=== PATIENT | female | born 1995 | race Caucasian/White ===

== ENCOUNTER 2016-08-26 14:36 | Emergency (ER) | payer OTHER ==
[2016-08-26 15:29] VITALS: BP 110/65
[2016-08-26] MEDS ORDERED: cefTRIAXone VIAL(*) 250 MG VIAL IM ONE (16:18)
[2016-08-26] MEDS ORDERED: Lidocaine 1% MPF* 2 ML VIAL ONE (16:23)
[2016-08-26] MEDS ORDERED: Azithromycin TAB* 250 MG PO ONE (16:52)
[2016-08-26] MEDS ORDERED: Ondansetron ODT TAB* 4 MG ONE (17:03)
[2016-08-26] MEDS ORDERED: Ondansetron ODT TAB* 4 MG PO ONE (18:00)
--- NOTE | 2016-08-26 18:02 | UC ---
Tito Clay Michael, scribed for Heather Matute MD on 08/26/16 at 1556 . Complaint Female HPI - HPI Summary HPI Summary: 21 y/o female comes to [facility] requesting an STD/HIV testing. The pt reports having unprotected sex 2 weeks ago and had STD/HIV testing which came back negative. Recently, she had unprotected sex with a different partner 2 days ago, and she now c/o yellow vaginal discharge, dysuria, and vaginal itching. The pt denies vaginal blisters and a hx of yeast infection. The PMHx is significant for Gonorrhea in 2014, and she is . Currently, the pt is breast feeding her 16 month old. The FHx is significant for DM, sz, and osteopenia. Her LNMP was 08/14/16. The pt will be starting control soon with a Nuvaring. - History Of Current Complaint Chief Complaint: UCSTDScreening Stated Complaint: ITCHY/BURNING VAGINAL COMPLAINT Hx Obtained From: Patient, Medical Records Hx Last Menstrual Period: 08/14/16 ?: No Onset/Duration: Sudden Onset, Lasting Days, Still Present Timing: Constant Severity Initially: Moderate Severity Currently: Moderate Pain Intensity: 0 Pain Scale Used: 0-10 Numeric Character: Not Applicable Aggravating Factor(s): Nothing Alleviating Factor(s): Nothing Associated Signs And Symptoms: Positive: Vaginal Discharge. Negative: Negative - Positive. dysuria. vaginal itching., Vaginal Bleeding/Discharge, Genital Swelling, Genital Blisters Related Hx: Prior STD Hx - gonorrhea - Allergies/Home Medications Allergies/Adverse Reactions: Allergies Allergy/AdvReac Type Severity Reaction Status Date / Time oral control Allergy See Comment Uncoded 08/26/16 15:23 Home Medications: Home Medications Vitamin [Calna] 1 tab PO DAILY 08/26/16 [History Confirmed 08/26/16] PMH/Surg Hx/FS Hx/Imm Hx - Additional Past Medical History Additional PMH: Gonorrhea Psychological History Of: Reports: Anxiety, Depression - Surgical History Surgical History: None - Family History Known Family History: Positive: Hypertension, Diabetes, Other - osteopenia - Social History Occupation: Unemployed Lives: With Family Alcohol Use: None Substance Use Type: None Smoking Status (MU): Former Smoker - Immunization History Most Recent Influenza Vaccination: none Most Recent Tetanus Shot: declined Most Recent Pneumonia Vaccination: never Review of Systems Constitutional: Negative Respiratory: Negative Gastrointestinal: Negative Genitourinary: Dysuria, Other - vaginal discharge. vaginal itching. negative vaginal blisters. Musculoskeletal: Negative Neurological: Negative Psychological: Negative All Other Systems Reviewed And Are Negative: Yes Physical Exam Triage Information Reviewed: Yes Appearance: Well-Appearing, No Pain Distress, Well-Nourished Vital Signs: Initial Vital Signs Temp 98.8 F 08/26/16 15:24 Pulse 76 08/26/16 15:24 Resp 16 08/26/16 15:24 BP 110/65 08/26/16 15:24 Pulse Ox 100 08/26/16 15:24 Vital Signs Reviewed: Yes ENT: Positive: Normal ENT inspection, Hearing grossly normal. Negative: Muffled /hoarse voice Neck: Positive: Supple Respiratory: Positive: Lungs clear, Normal breath sounds, No respiratory distress Cardiovascular: Positive: RRR, No Murmur, Pulses Normal, Brisk Capillary Refill Abdomen Description: Positive: Nontender, No Organomegaly, Soft. Negative: CVA Tenderness (R), CVA Tenderness (L), Distended, Guarding, McBurney's Point Tenderness, Peritoneal Signs Musculoskeletal: Positive: Strength Intact, ROM Intact Neurological Exam: Normal Psychological Exam: Normal Skin Exam: Normal Complaint Female Dx - Course Course Of Treatment: have treated pt empirically at her request. Pt is nursing so did not give doxycycline. discussed possible zofran if meds make her nauseous. Caution is advised with zofran. Will dispense one zofran and pt may decide risks vs benefits. - Differential Dx/Diagnosis Differential Diagnosis/HQI/PQRI: Cervicitis, Sexually Transmitted Disease, Tubo- ovarian Abscess, Urinary Tract Infection Provider Diagnoses: STD evaluation and treatment Discharge - Discharge Plan Condition: Stable Disposition: HOME Patient Education Materials: Sexually Transmitted Diseases (ED) Referrals: Asif Ayers MD [Primary Care Provider] - Additional Instructions: We gave you a shot of ceftriaxone 250mg as empiric treatment for STD's. We also gave azithromycin 1000mg orally. You need both of these treatments for STD 's. We will notify you if you need further treatment based on the tests sent today. We dispensed one pill of zofran that you may take if the meds make you nauseous. Return to urgent care if any new or worsening symptoms. The documentation as recorded by the Tito gibson Michael accurately reflects the service I personally performed and the decisions made by , Heather Matute MD.
[2016-08-27 12:44] LABS: Syphilis Index < 0.1 Index
== END 2016-08-26 17:07 | disposition home or self-care (01) ==
LOC: UCEAST 14:36
DX: N89.8 Other specified noninflammatory disorders of vagina (principal); Z11.3 Encounter for screening for infections with a predominantly sexual mode of transmission
CPT/HCPCS: 36415; 81003; 84702; 86592; 86703; 87480; 87491; 87510; 87591; 87661; 99211; A9270-GY; G0463; J0696

== ENCOUNTER 2016-09-16 23:37 | Inpatient (IN) | payer MEDICAID, OTHER ==
[2016-09-17 00:34] LABS: Hematocrit 39 % (35-47); Hemoglobin 12.7 g/dl (12.0-16.0); Mean Corpuscular HGB Conc 32 g/dl (31-36); Mean Corpuscular Hemoglobin 28 pg (27-31); Mean Corpuscular Volume 87 fL (80-97); Mean Platelet Volume 9 um3 (7.4-10.4); Red Cell Distribution Width 14 % (10.5-15); White Blood Count 8.8 10^3/ul (3.5-10.8)
[2016-09-17 01:05] LABS: Acetaminophen < 15 mcg/mL; Alcohol < 10 mg/dL (<10); Salicylate < 2.50 mg/dL (<30)
[2016-09-17 01:06] LABS: ALT 13 U/L (7-52); AST 13 U/L (13-39); Albumin 4.2 g/dL (3.2-5.2); Alkaline Phosphatase 109 U/L (34-104); Anion Gap 7 mmol/L (2-11); BUN/Creatinine Ratio 15.6 (8-20); Blood Urea Nitrogen 14 mg/dL (6-24); CO2 Carbon Dioxide 24 mmol/L (22-32); Calcium 9.2 mg/dL (8.6-10.3); Chloride 107 mmol/L (101-111); EGFR African American 102.7 (>60); EGFR Non-African American 79.8 (>60); Globulin 2.8 g/dL (2-4); Glucose 77 mg/dL (70-100); Potassium 4.2 mmol/L (3.5-5.0); Sodium 138 mmol/L (133-145)
[2016-09-17] MEDS ORDERED: Fluconazole 100 MG TAB* TAB PO ONE (01:16)
--- NOTE | 2016-09-17 01:39 | ED ---
Psychiatric Complaint - HPI Summary HPI Summary: Patient presents with her mother for SI. She has had thoughts in the past with attempts. Today she had a plan "but was just too lazy to go through with it". She does not elaborate on her plan. She sees a counselor and has been prescribed medications for anxiety and sleep but she does not take them. She denies physical complaints. - History Of Current Complaint Chief Complaint: EDMentalHealth Time Seen by Provider: 09/17/16 00:01 Hx Obtained From: Patient, Family/Log Driver Hx Last Menstrual Period: 08/14/16 ?: No Onset/Duration: Gradual Onset Timing: Constant Severity Initially: Severe Severity Currently: Severe Character: Depressed Aggravating Factor(s): Recent Stress Alleviating Factor(s): Nothing Associated Signs And Symptoms: Positive: Sleep Disturbance Related History: Positive For: Prior Psychiatric Issues Has Suicidal: Reports: Thoughts, With A Plan, Has Prior Attempt(s) - Allergies/Home Medications Allergies/Adverse Reactions: Allergies Allergy/AdvReac Type Severity Reaction Status Date / Time oral control Allergy See Comment Uncoded 08/26/16 15:23 Home Medications: Home Medications Cholecalciferol [Vitamin D] 1,000 unit PO DAILY 09/17/16 [History Confirmed 06/05] Nuvaring 1 each VAGINAL ONCE 09/17/16 [History Confirmed 09/17/16] Sertraline* [Zoloft*] 25 mg PO DAILY 09/17/16 [History Confirmed 09/17/16] PMH/Surg Hx/FS Hx/Imm Hx Psychiatric History: Reports: Hx Anxiety, Hx Eating Disorder - ANOREXIA NERVOSA , [place], Hx Depression, Hx Post Traumatic Stress Disorder, Hx Inpatient Treatment - [facility] and [facility], Hx [facility], Hx of Violent Episodes Against Others Infectious Disease History: No Infectious Disease History: Denies: History Other Infectious Disease, Traveled Outside the [place] in Last 30 Days - Family History Known Family History: Positive: Hypertension, Diabetes, Other - osteopenia Negative: Blood Disorder - Social History Occupation: Employed Part-time Lives: With Family Alcohol Use: None Substance Use Type: Reports: Marijuana, Other Substance Use Comment - Amount & Last Used: spice, yesterday Smoking Status (MU): Former Smoker Review of Systems Negative: Chest Pain Negative: Shortness Of Breath Negative: Abdominal Pain Negative: Myalgia Negative: Headache Positive: Depressed All Other Systems Reviewed And Are Negative: Yes Physical Exam Triage Information Reviewed: Yes Vital Signs On Initial Exam: Initial Vitals Temp Pulse Resp BP Pulse Ox 98.5 F 55 16 106/58 99 09/16/16 23:40 09/16/16 23:40 09/16/16 23:40 09/16/16 23:40 09/16/16 23:40 Vital Signs Reviewed: Yes Appearance: Positive: Well-Appearing, No Pain Distress, Thin Skin: Positive: Warm, Skin Color Reflects Adequate Perfusion, Dry, Soft Head/Face: Positive: Normal Head/Face Inspection Eyes: Positive: EOMI, JESSE, Conjunctiva Clear ENT: Positive: Hearing grossly normal, Pharynx normal Neck: Positive: Supple, Nontender, No Lymphadenopathy Respiratory/Lung Sounds: Positive: Clear to Auscultation, Breath Sounds Present Cardiovascular: Positive: RRR Abdomen Description: Positive: Nontender, Soft Bowel Sounds: Positive: Present Musculoskeletal: Negative: Edema Left, Edema Right Neurological: Positive: Sensory/Motor Intact, Alert, Oriented to Person Place, Time, NV Bundle Intact Distally, Normal Gait Psychiatric: Positive: Depressed AVPU Assessment: Alert - [place] Coma Scale Coma Scale Total: 15 Diagnostics - Vital Signs Vital Signs Temp Pulse Resp BP Pulse Ox 09/16/16 23:59 98.5 F 55 16 106/58 99 09/16/16 23:40 98.5 F 55 16 106/58 99 - Laboratory Lab Results: Lab Results 09/17/16 09/17/16 Range/Units 00:00 00:00 WBC 8.8 (3.5-10.8) 10^3/ul RBC 4.50 (4.0-5.4) 10^6/ul Hgb 12.7 (12.0-16.0) g/dl Hct 39 (35-47) % MCV 87 (80-97) fL MCH 28 (27-31) pg MCHC 32 (31-36) g/dl RDW 14 (10.5-15) % Plt Count 297 (150-450) 10^3/ul MPV 9 (7.4-10.4) um3 Neut % (Auto) 45.4 (38-83) % Lymph % (Auto) 42.2 (25-47) % [place] % (Auto) 8.3 (1-9) % Eos % (Auto) 3.4 (0-6) % Baso % (Auto) 0.7 (0-2) % Absolute Neuts (auto) 4.0 (1.5-7.7) 10^3/ul Absolute Lymphs (auto) 3.7 (1.0-4.8) 10^3/ul Absolute Monos (auto) 0.7 (0-0.8) 10^3/ul Absolute Eos (auto) 0.3 (0-0.6) 10^3/ul Absolute Basos (auto) 0.1 (0-0.2) 10^3/ul Absolute Nucleated RBC 0.01 10^3/ul Nucleated RBC % 0.1 Sodium 138 (133-145) mmol/L Potassium 4.2 (3.5-5.0) mmol/L Chloride 107 (101-111) mmol/L Carbon Dioxide 24 (22-32) mmol/L Anion Gap 7 (2-11) mmol/L BUN 14 (6-24) mg/dL Creatinine 0.90 (0.51-0.95) mg/dL Est GFR ( Amer) 102.7 (>60) Est GFR (Non-Af Amer) 79.8 (>60) BUN/Creatinine Ratio 15.6 (8-20) Glucose 77 (70-100) mg/dL Calcium 9.2 (8.6-10.3) mg/dL Total Bilirubin 0.40 (0.2-1.0) mg/dL AST 13 (13-39) U/L ALT 13 (7-52) U/L Alkaline Phosphatase 109 H (34-104) U/L Total Protein 7.0 (6.4-8.9) g/dL Albumin 4.2 (3.2-5.2) g/dL Globulin 2.8 (2-4) g/dL Albumin/Globulin Ratio 1.5 (1-3) TSH 3.90 (0.34-5.60) mcIU/mL Salicylates < 2.50 (<30) mg/dL Acetaminophen < 15 mcg/mL Serum Alcohol < 10 (<10) mg/dL Result Diagrams: 09/17/16 00:00 09/17/16 00:00 Lab Statement: Any lab studies that have been ordered have been reviewed, and results considered in the medical decision making process. Course/Dx - Differential Dx/Clinical Impression Differential Diagnosis/HQI/PQRI: Positive: Acute Psychosis, Alcohol Intoxication , Anxiety, Bipolar Disorder, Depression, Homicidal Ideation, Schizophrenia, Suicidal Ideation Provider Diagnosis: Persistent mood [affective] disorder, unspecified - Physician Notifications Patient Is Medically Stable For: Psych Evaluation Discharge - Discharge Plan Condition: Stable Disposition: ADMITT[facility] TO [facility]
[2016-09-17 15:00] LABS: Urine Bacteria 1+ (Absent); Urine Bilirubin Negative (Negative); Urine Glucose Negative (Negative); Urine Nitrite Negative (Negative)
[2016-09-17 16:00] LABS: Benzodiazepine Urine Screen None Detected (None Detect)
[2016-09-17 16:30] LABS: UR Preg Internal Control QC Line Present
[2016-09-17] MEDS ORDERED: Nicotine Inhaler* 10 MG AMP INH PRN (16:58)
[2016-09-17] MEDS ORDERED: Al Hydrox/Mg Hydrox/Simet LIQ* 30 ML UDC PO PRN (16:58)
[2016-09-17] MEDS ORDERED: OLANzapine TAB*ODT* 5 MG PO PRN (17:02)
--- NOTE | 2016-09-17 17:59 | PN ---
Rayray Clay Auryana, scribed for Axel Pablo MD on 09/17/16 at 1758 . Progress Note - Progress Note Note: Signed voluntary admission - 16:45 to [facility]. condition is stable. Diagnosis: PTSD. The documentation as recorded by the Rayray gibson Auryana accurately reflects the service I personally performed and the decisions made by , Axel Pablo MD.
[2016-09-17] MEDS ORDERED: Mouth Piece, Nicotine* 1 EACH CARTRIDGE INH ONE (18:00)
[2016-09-17] MEDS: Acetaminophen TAB* 325 MG PO PRN (18:40)
[2016-09-18] MEDS: Vitamin THERAPEUTIC TAB PO SCH (10:51)
--- NOTE | 2016-09-18 11:23 | PN ---
[facility]: Group Therapy Note - Service Type Service Type: [id number] Group Psychotherapy - Cognitive Behavioral Group Therapy ( CBT):Patient was attentive and participatory in CBT programming this morning, and remained in good behavioral control. Patient expressed positive insights regarding relevant treatment interventions and goals.
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
[2016-09-18] MEDS ORDERED: hydrOXYzine HCL TAB* 25 MG PO PRN (17:13)
--- NOTE | 2016-09-18 22:01 | PN ---
Progress Note - Progress Note Note: Patient apparently with hip pain as per Psychiatrist. Before doing an extensive workup, make sure patient is getting her ibuprofen when needed and try tylenol as well. If unsuccessful then advice and can consider pursuing workup.
[2016-09-19] MEDS: Ibuprofen TAB* 400 MG PO PRN ×2 (00:30→22:50)
[2016-09-19] MEDS: Acetaminophen TAB* 325 MG PO PRN (00:30)
[2016-09-19] MEDS: traZODone TAB* 50 MG TAB PO PRN ×2 (00:35→22:51)
[2016-09-19] MEDS: Prenatal Vitamin TAB PO SCH (09:20)
[2016-09-19] MEDS: Sertraline* 25 MG TAB PO SCH (09:20)
[2016-09-19] MEDS: Cholecalciferol TAB* 1000 UNITS PO SCH (09:21)
[2016-09-19] MEDS: Vitamin THERAPEUTIC TAB PO SCH (09:22)
--- NOTE | 2016-09-19 11:41 | PN ---
[facility]: Group Therapy Note - Service Type Service Type: 72798 Group Psychotherapy - Cognitive Behavioral Group Therapy ( CBT):Patient was attentive and participatory in CBT programming this morning, and remained in good behavioral control. Patient expressed positive insights regarding relevant treatment interventions and goals.
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
[2016-09-20 08:25] VITALS: BP 97/46
[2016-09-20] MEDS: Prenatal Vitamin TAB PO SCH (09:27)
[2016-09-20] MEDS: Sertraline* 25 MG TAB PO SCH (09:27)
[2016-09-20] MEDS: Cholecalciferol TAB* 1000 UNITS PO SCH (09:27)
[2016-09-20] MEDS: Vitamin THERAPEUTIC TAB PO SCH (09:27)
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
--- NOTE | 2016-09-20 13:28 | PN ---
[facility]: Group Therapy Note - Service Type Service Type: 92120 Group Psychotherapy - Cognitive Behavioral Group Therapy ( CBT):Patient was attentive and participatory in CBT programming this morning, and remained in good behavioral control. Patient expressed positive insights regarding relevant treatment interventions and goals.
== END 2016-09-20 14:45 | disposition home or self-care (01) | DRG 754 ==
LOC: ED 23:37 → BSU 09-17 16:58
PROVIDERS: ADMIT Psychiatry & Neurology Psychiatry; ATTEND Psychiatry & Neurology Psychiatry
PROC: GZHZZZZ Group Psychotherapy (ICD-10-PCS; principal; 2016-09-17)
DX: F32.9 Major depressive disorder, single episode, unspecified (principal); F50.00 Anorexia nervosa, unspecified; F50.2 Bulimia nervosa; F43.10 Post-traumatic stress disorder, unspecified; F41.0 Panic disorder [episodic paroxysmal anxiety]; F12.90 Cannabis use, unspecified, uncomplicated; Z62.812 Personal history of neglect in childhood; F91.3 Oppositional defiant disorder; F60.3 Borderline personality disorder; M25.552 Pain in left hip; M79.652 Pain in left thigh; M25.562 Pain in left knee; R40.2412 Glasgow coma scale score 13-15, at arrival to emergency department; Z62.810 Personal history of physical and sexual abuse in childhood; Z82.49 Family history of ischemic heart disease and other diseases of the circulatory system; Z84.89 Family history of other specified conditions; Z86.19 Personal history of other infectious and parasitic diseases; Z83.3 Family history of diabetes mellitus; Z87.891 Personal history of nicotine dependence; Z91.5 Personal history of self-harm; Z81.8 Family history of other mental and behavioral disorders; Z81.3 Family history of other psychoactive substance abuse and dependence; Z91.410 Personal history of adult physical and sexual abuse; Z68.20 Body mass index [BMI] 20.0-20.9, adult; Z91.040 Latex allergy status
CPT/HCPCS: 36415; 80053; 80307; 80320; 80329; 81003; 81015; 81025; 84443; 85025; 87086; 90853; 99222; 99231; 99238; 99282; A9270-GY; G0480

== ENCOUNTER 2016-11-23 12:34 | Emergency (ER) | payer OTHER ==
[2016-11-23 12:40] VITALS: BP 107/70
[2016-11-23] MEDS ORDERED: diPHENhydraMINE PO* 25 MG PO ONE (15:48)
[2016-11-23] MEDS ORDERED: predniSONE TAB* 20 MG PO ONE (15:49)
--- NOTE | 2016-11-23 15:52 | ED ---
Allergic Reaction/Systemic - History of Current Complaint Chief Complaint: EDAllergicReaction Time Seen by Provider: 11/23/16 14:54 Hx Last Menstrual Period: 08/14/16 Pain Intensity: 0 - Allergies/Home Medications Allergies/Adverse Reactions: Allergies Allergy/AdvReac Type Severity Reaction Status Date / Time oral control Allergy See Comment Uncoded 08/26/16 15:23 PMH/Surg Hx/FS Hx/Imm Hx Sensory History: Denies: Hx Contacts or Glasses, Hx Hearing Aid Opthamlomology History: Denies: Hx Contacts or Glasses Psychiatric History: Reports: Hx Anxiety, Hx Eating Disorder - ANOREXIA NERVOSA , BULEMIA, Hx Depression, Hx Post Traumatic Stress Disorder, Hx Inpatient Treatment - [facility] and [facility], Hx [facility] and [facility], Hx of Violent Episodes Against Others Infectious Disease History: No Infectious Disease History: Denies: History Other Infectious Disease, Traveled Outside the [place] in Last 30 Days - Family History Known Family History: Positive: Hypertension, Diabetes, Other - osteopenia Negative: Blood Disorder - Social History Alcohol Use: None Substance Use Type: Reports: Marijuana, Other Substance Use Comment - Amount & Last Used: spice, yesterday Smoking Status (MU): Former Smoker Physical Exam Vital Signs On Initial Exam: Initial Vitals Temp Pulse Resp BP Pulse Ox 98.0 F 76 16 107/70 100 11/23/16 12:37 11/23/16 12:37 11/23/16 12:37 11/23/16 12:37 11/23/16 12:37 Diagnostics - Vital Signs Vital Signs Temp Pulse Resp BP Pulse Ox 11/23/16 12:40 98.1 F 90 16 107/70 100 11/23/16 12:37 98.0 F 76 16 107/70 100 - Laboratory Lab Statement: Any lab studies that have been ordered have been reviewed, and results considered in the medical decision making process. Allergic Reaction Course/Dx - Diagnoses Provider Diagnoses: Allergic reaction to food Discharge - Discharge Plan Condition: Stable Disposition: HOME Prescriptions: diPHENhydraMINE PO* [Benadryl PO 25 MG TAB*] 25 mg PO BEDTIME PRN #5 tab PRN Reason: Allergy Symptoms predniSONE TAB* [Deltasone TAB*] 20 mg PO DAILY #3 tab Patient Education Materials: Food Allergy (ED) Additional Instructions: Take medications as prescribed for the next couple of days starting tomorrow. Take prednisone in the morning and benadryl at bedtime. IF symptoms return or worsen please return to ER immediately. Follow up with PCP. Stay away from cashews and foods containing cashews.
== END 2016-11-23 16:32 | disposition home or self-care (01) ==
LOC: ED 12:34
DX: T78.1XXA Other adverse food reactions, not elsewhere classified, initial encounter (principal); X58.XXXA Exposure to other specified factors, initial encounter; Z87.891 Personal history of nicotine dependence
CPT/HCPCS: 99281; A9270-GY; J7512

== ENCOUNTER 2017-01-26 18:12 | Emergency (ER) | payer OTHER ==
[2017-01-26 18:20] VITALS: BP 98/57
--- NOTE | 2017-01-26 18:28 | UC ---
Throat Pain/Nasal Pj HPI - HPI Summary HPI Summary: 21 y/o female presents to the urgent care c/o loosing her voice with a sore throat for the past 4 days. Pt is 10 weeks . Pt states difficulty swallowing. Pain is 4/10 with mild DE SANTIAGO. Pt denies fever, SOB, chest pain, N/V/D, cough. Pt has not taking anything to alleviate symptoms. - History of Current Complaint Chief Complaint: UCRespiratory Stated Complaint: LOSING VOICE,ST Time Seen by Provider: 01/26/17 18:26 Hx Obtained From: Patient Hx Last Menstrual Period: 08/14/16 Onset/Duration: Gradual Onset, Lasting Days - 4 days Severity: Moderate Pain Intensity: 4 Pain Scale Used: 0-10 Numeric Cough: None Associated Signs & Symptoms: Positive: Dysphagia, Hoarseness. Negative: Sinus Discomfort, Fever, Vomiting, Rash - Epiglottits Risk Factors Epiglottis Risk Factors: Negative - Allergies/Home Medications Allergies/Adverse Reactions: Allergies Allergy/AdvReac Type Severity Reaction Status Date / Time oral control Allergy See Comment Uncoded 08/26/16 15:23 PMH/Surg Hx/FS Hx/Imm Hx Previously Healthy: Yes - Pt denies any PMHX - Surgical History Surgical History: Yes - Family History Known Family History: Positive: Hypertension, Diabetes Negative: Blood Disorder Family History: Osteopenia - Social History Occupation: Employed Full-time Lives: With Family Alcohol Use: None Substance Use Type: None Substance Use Comment - Amount & Last Used: spice, yesterday Smoking Status (MU): Former Smoker - Immunization History Most Recent Influenza Vaccination: none Most Recent Tetanus Shot: declined Most Recent Pneumonia Vaccination: never Review of Systems Constitutional: Negative Skin: Negative Eyes: Negative ENT: Sore Throat, Other - hoarseness Respiratory: Negative Cardiovascular: Negative Gastrointestinal: Negative Genitourinary: Negative Motor: Negative Neurovascular: Negative Musculoskeletal: Negative Neurological: Negative Psychological: Negative Is Patient Immunocompromised?: No All Other Systems Reviewed And Are Negative: Yes Physical Exam Triage Information Reviewed: Yes Appearance: Well-Appearing, No Pain Distress, Well-Nourished, Thin Vital Signs: Initial Vital Signs Temp 98.6 F 01/26/17 18:16 Pulse 72 01/26/17 18:16 Resp 18 01/26/17 18:16 BP 98/57 01/26/17 18:16 Pulse Ox 100 01/26/17 18:16 Vital Signs Reviewed: Yes Eye Exam: Normal Eyes: Positive: Conjunctiva Clear - PERRLA, EOMI ENT: Positive: Normal ENT inspection, Hearing grossly normal, Pharyngeal erythema - no exudate, Nasal congestion - mild erythematous nasal mucosa, TMs normal, Tonsillar swelling. Negative: Tonsillar exudate Dental Exam: Normal Neck exam: Normal Neck: Positive: Supple, Nontender, No Lymphadenopathy Respiratory Exam: Normal Respiratory: Positive: Chest non-tender, Lungs clear, Normal breath sounds Cardiovascular Exam: Normal Cardiovascular: Positive: RRR, No Murmur, Pulses Normal Abdominal Exam: Normal Abdomen Description: Positive: Nontender, No Organomegaly, Soft. Negative: CVA Tenderness (R), CVA Tenderness (L) Bowel Sounds: Positive: Present Musculoskeletal Exam: Normal Musculoskeletal: Positive: Strength Intact, ROM Intact, No Edema Neurological Exam: Normal Psychological Exam: Normal Skin Exam: Normal Throat Pain/Nasal Course/Dx - Course Course Of Treatment: 21 y/o female presents to the urgent care c/o loosing her voice with a sore throat for the past 4 days. Pt is 10 weeks . Pt states difficulty swallowing. Pain is 4/10 with mild DE SANTIAGO. Pt denies fever, SOB, chest pain, N/V/D, cough. Pt has not taking anything to alleviate symptoms.Hx obtained, Rapid strep ordered: negative. Pt with a Viral pharyngitis and laryngitis. Pt advised to continue taking Tylenol PO to alleviate symptoms of pain and swelling, rest, increse fluid intake and eat well. Also advised to rest her voice. If not improvement of symptoms to return to the urgent rajeev or f /u with her PCP for furhter management. Pt understood and agreed with D/C plan. - Differential Dx/Diagnosis Differential Diagnosis/HQI/PQRI: Laryngitis, Mononucleosis, Pharyngitis, Sinusitis, URI Provider Diagnoses: 1- Viral pharyngitis Discharge - Discharge Plan Condition: Stable Disposition: HOME Patient Education Materials: Pharyngitis (ED) Referrals: Asif Ayers MD [Primary Care Provider] - 3 Days Additional Instructions: 1-Please take Tylenol PO q4-6hrs prn as instructed after meals to alleviate pain and swelling.Increase fluid intake, rest and eat well, rest your voice. 2-If symptoms do not improve or worsen please return to the urgent care or f/u with your PCP for further evaluation and treatment.
== END 2017-01-26 19:05 | disposition home or self-care (01) ==
LOC: UCEAST 18:12
DX: O26.891 Other specified pregnancy related conditions, first trimester (principal); J02.8 Acute pharyngitis due to other specified organisms; Z3A.10 10 weeks gestation of pregnancy; Z87.891 Personal history of nicotine dependence
CPT/HCPCS: 87651; 99211; G0463

== ENCOUNTER 2017-04-28 17:36 | Emergency (ER) | payer OTHER ==
[2017-04-28] MEDS ORDERED: Azithromycin TAB* 250 MG PO ONE (19:48)
[2017-04-28] MEDS ORDERED: cefTRIAXone VIAL(*) 250 MG VIAL IM ONE (19:50)
--- NOTE | 2017-04-28 20:18 | ED ---
GI/ HPI - HPI Summary HPI Summary: Patient is a 24week F with no PMH presents to the ED with CC vaginal itching, discharge and inflammation. She notes to erythema and feeling as though there are excoriations/lesions d/t dryness. She has been having extra discharge recently and thought it was d/t . Denies previous STD. Endorses history of bacterial vaginosis and treated through her [facility]. She denies history of yeast infection. No complications with this or previous . She states she has intercourse with 1 partner and is unsure if there is chance of STD. Uses unprotected sex. Symptoms began 1 week ago and feels as though it has been worsening. Denies any vaginal bleeding. Denies any abdominal pain. Endorses feeling lethargic recently, but denies fevers, sweats or chills. - History of Current Complaint Chief Complaint: EDUrogenitalProblems Time Seen by Provider: 04/28/17 18:11 Stated Complaint: DIZZINESS Hx Obtained From: Patient Hx Last Menstrual Period: 08/14/16 Onset/Duration: Started Days Ago Timing: Constant Severity: Moderate Current Severity: Moderate Pain Intensity: 0 Additional Location for Females: Vulva Pain Characteristics: Burning, Itching Associated Signs and Symptoms: Positive: Discharge, Dysuria, UTI Symptoms Additional Signs & Symptoms: Positive: Genital Swelling, Vaginal Discharge, - 2, Para - 1 Aggravating Factor(s): Nothing - Risk Factors GI Bleed Risk Factor(s): Negative Spontaneous AB Risk Factor(s): Negative Placental Abruption Risk Factor(s): Negative Ectopic Risk Factor(s): Negative - Additional Pertinent History Primary Care Physician: [facility] - Allergy/Home Medications Allergies/Adverse Reactions: Allergies Allergy/AdvReac Type Severity Reaction Status Date / Time oral control Allergy See Comment Uncoded 08/26/16 15:23 PMH/Surg Hx/FS Hx/Imm Hx Previously Healthy: Yes Sensory History: Denies: Hx Contacts or Glasses, Hx Hearing Aid Opthamlomology History: Denies: Hx Contacts or Glasses Psychiatric History: Reports: Hx Anxiety, Hx Eating Disorder - ANOREXIA NERVOSA , [place], Hx Depression, Hx Post Traumatic Stress Disorder, Hx Inpatient Treatment - [facility] and [facility], Hx [facility] and [facility], Hx of Violent Episodes Against Others - Immunization History Hx Pertussis Vaccination: No Immunizations Up to Date: Unable to Obtain/Confirm Infectious Disease History: No Infectious Disease History: Denies: History Other Infectious Disease, Traveled Outside the [place] in Last 30 Days - Family History Known Family History: Positive: Hypertension, Diabetes, Other - osteopenia Negative: Blood Disorder Family History: Osteopenia - Social History Occupation: Unemployed Lives: With Family Alcohol Use: None Hx Substance Use: No Substance Use Type: Reports: None Substance Use Comment - Amount & Last Used: spice, yesterday Hx Tobacco Use: Yes Smoking Status (MU): Former Smoker Review of Systems Constitutional: Negative Negative: Fever, Chills, Fatigue Eyes: Negative Cardiovascular: Negative Respiratory: Negative Genitourinary: Other - vaginal/labial itching and burning Positive: see HPI, burning, discharge Musculoskeletal: Negative Neurological: Negative All Other Systems Reviewed And Are Negative: Yes Physical Exam Triage Information Reviewed: Yes Vital Signs On Initial Exam: Initial Vitals Temp Pulse Resp BP Pulse Ox 97.2 F 66 16 93/57 100 04/28/17 18:03 04/28/17 18:03 04/28/17 18:03 04/28/17 18:03 04/28/17 18:03 Vital Signs Reviewed: Yes Appearance: Positive: Well-Appearing, Well-Nourished Skin: Positive: Warm, Skin Color Reflects Adequate Perfusion Head/Face: Positive: Normal Head/Face Inspection Eyes: Positive: EOMI, JESSE, Conjunctiva Clear Neck: Positive: Supple, No Lymphadenopathy Respiratory/Lung Sounds: Positive: Clear to Auscultation, Breath Sounds Present Cardiovascular: Positive: RRR, Pulses are Symmetrical in both Upper and Lower Extremities Abdomen Description: Positive: Nontender, Soft Bowel Sounds: Positive: Present Pelvic Exam: Positive: bimanual exam normal, no cerv. motion tender, no masses, discharge, other. Negative: active bleeding, cervicitis, tender w/ cervical motion Musculoskeletal: Positive: Normal, Strength/ROM Intact Neurological: Positive: Speech Normal Psychiatric: Positive: Normal, Affect/Mood Appropriate - Pelvic exam reveals: PELVIC EXAM PERFORMED BY MYSELF, QUIN AKHTAR PA-C. exam reveals (-) chandelier sign. No vesicles or lesions present. The external genitalia is without lesions, but erythemetous and inflamed. Introitus is normal, vaginal solis pink and moist without lesions or evidence of trauma. There is no cervical motion tenderness and the adnexa are without masses. There is copious amounts of green/yellow discharge from the cervix. No thick white discharge is noted. Swabs obtained of GC/Chlamydia, trichomonas and BV. Will await results of BV. Treated for GC/claymydia based on appearance. No strawberry cervix. - Michael Coma Scale Coma Scale Total: 15 Diagnostics - Vital Signs Vital Signs Temp Pulse Resp BP Pulse Ox 04/28/17 19:00 71 94/51 100 04/28/17 18:30 61 97/48 99 04/28/17 18:04 62 100 04/28/17 18:03 97.2 F 66 16 93/57 100 - Laboratory Lab Statement: Any lab studies that have been ordered have been reviewed, and results considered in the medical decision making process. GIGU Course/Dx - Course Course Of Treatment: Pelvic performed: Pelvic exam reveals: PELVIC EXAM PERFORMED BY MYSELF, QUIN AKHTAR PA-C. exam reveals (-) chandelier sign. No vesicles or lesions present. The external genitalia is without lesions, but erythemetous and inflamed. Introitus is normal, vaginal solis pink and moist without lesions or evidence of trauma. There is no cervical motion tenderness and the adnexa are without masses. There is copious amounts of green/yellow discharge from the cervix. No strawberry cervix. No thick white discharge is noted. Swabs obtained of GC/Chlamydia, trichomonas and BV. Will await results of BV. Treated for GC/claymydia based on appearance with 250 IM ceftriaxone and 1G Azithromycin. Treated potential co-existing yeast infection with clotrimazole cream. All medications are reviewed and safe in and used as first line according to UTD. She understands plan and is Ok with discharge and I have discussed partners needing to be treated if positive results. Will call with positive results in 2-3 days. Abstain from intercourse for at least 7 days after both partners treated. - Diagnoses Differential Diagnoses - Female: Other - BV, GC/chlamydia; yeast Provider Diagnoses: Vulvovaginal itching Discharge - Discharge Plan Condition: Stable Disposition: HOME Prescriptions: Cephalexin CAP* [Keflex CAP*] 500 mg PO BID #14 cap MDD 2 Clotrimazole 1% VAGINAL CREAM* [Gyne-Lotrimin 1% VAGINAL CREAM*] 1 applic VAGINAL BEDTIME #1 tube Patient Education Materials: Sexually Transmitted Diseases (ED), Vulvovaginal Candidiasis (ED), Urinary Tract Infection in (ED) Referrals: Asif Ayers MD [Primary Care Provider] - Additional Instructions: Please follow up with OBGYN We will call with any positive results of the Gonorrhea/chlamydia test Your partners MUST be treated if this is positive Please take the Keflex twice daily for 7 days Abstain from intercourse for 7 days until treatment of yourself AND your partner are completed If not, you will become re-infected Yeast infection - I have given you the safe yeast cream you will use at bedtime.
[2017-04-28 20:26] LABS: Urine Bacteria Absent (Absent); Urine Bilirubin Negative (Negative); Urine Glucose Negative (Negative); Urine Nitrite Negative (Negative)
[2017-04-28] MEDS ORDERED: Lidocaine 1% INJ* 10 MG/ML 30 ML SDV INJ ONE (20:30)
[2017-04-28] MEDS ORDERED: Lidocaine 1%* 5 ML VIAL ONE (20:33)
[2017-04-28] MEDS ORDERED: Lidocaine 1%* 5 ML VIAL INJ ONE (20:38)
[2017-04-28] MEDS ORDERED: Clotrimazole 1% VAGINAL CREAM* 45 GM VAGINAL SCH (21:00)
[2017-04-28 21:15] VITALS: BP 92/58
--- NOTE | 2017-05-01 12:18 | ED ---
Progress - Progress Note Progress Note: Pt's vaginal cx + jesse - she was d/c'd w/ vaginal clotrimazole. No change in care at this time. Course/Dx - Course Course Of Treatment: Pelvic performed: Pelvic exam reveals: PELVIC EXAM PERFORMED BY MYSELF, QUIN AKHTAR PA-C. exam reveals (-) chandelier sign. No vesicles or lesions present. The external genitalia is without lesions, but erythemetous and inflamed. Introitus is normal, vaginal solis pink and moist without lesions or evidence of trauma. There is no cervical motion tenderness and the adnexa are without masses. There is copious amounts of green/yellow discharge from the cervix. No strawberry cervix. No thick white discharge is noted. Swabs obtained of GC/Chlamydia, trichomonas and BV. Will await results of BV. Treated for GC/claymydia based on appearance with 250 IM ceftriaxone and 1G Azithromycin. Treated potential co-existing yeast infection with clotrimazole cream. All medications are reviewed and safe in and used as first line according to UTD. She understands plan and is Ok with discharge and I have discussed partners needing to be treated if positive results. Will call with positive results in 2-3 days. Abstain from intercourse for at least 7 days after both partners treated. - Diagnoses Provider Diagnoses: Vulvovaginal itching
== END 2017-04-28 21:10 | disposition home or self-care (01) ==
LOC: ED 17:36
DX: O26.892 Other specified pregnancy related conditions, second trimester (principal); Z3A.23 23 weeks gestation of pregnancy; L29.2 Pruritus vulvae; Z87.891 Personal history of nicotine dependence
CPT/HCPCS: 81003; 81015; 87086; 87480; 87491; 87510; 87591; 87661; 96372; 99283; A9270-GY; J0696

== ENCOUNTER 2017-06-29 15:03 | Emergency (ER) | payer OTHER | END 2017-06-29 17:09 | disposition left against medical advice (07) | LOC: UCEAST 15:03 | DX: N94.9 Unspecified condition associated with female genital organs and menstrual cycle (principal); Z53.21 Procedure and treatment not carried out due to patient leaving prior to being seen by health care provider ==

== ENCOUNTER 2017-08-05 15:00 | Inpatient (IN) | payer OTHER ==
[2017-08-05] MEDS ORDERED: Ibuprofen TAB* 600 MG ONE (15:51)
[2017-08-05] MEDS ORDERED: Glycerin ADULT SUPP PR PRN (15:56)
[2017-08-05] MEDS ORDERED: Acetaminophen TAB* 325 MG PO PRN (15:56)
[2017-08-05] MEDS ORDERED: Dibucaine 1% 28.35 GM TUBE PR PRN (15:56)
[2017-08-05] MEDS ORDERED: Tetan/Diph/Pertus SYR(Tdap)* 0.5 ML SYR(BOOSTRIX) use SYR IM ONE (15:56)
[2017-08-05] MEDS ORDERED: OXYTOCIN* 10 UNITS/ML 1 ML VIAL IM ONE (15:56)
[2017-08-05] MEDS ORDERED: Witch Hazel PAD* JAR TOPICAL PRN (15:56)
[2017-08-05] MEDS ORDERED: OXYTOCIN* 10 UNITS/ML 1 ML VIAL ONE (16:05)
[2017-08-05] MEDS ORDERED: Simethicone TAB* 80 MG TAB.CHEW PO SCH (17:30)
[2017-08-05] MEDS: Docusate CAP* 100 MG PO SCH (20:25)
[2017-08-05] MEDS: Sertraline* 25 MG TAB PO SCH (22:41)
[2017-08-05] MEDS: Ibuprofen TAB* 600 MG PO PRN (22:42)
[2017-08-06] MEDS: Ibuprofen TAB* 600 MG PO PRN ×2 (04:27→10:38)
[2017-08-06 07:17] LABS: ABS Basophils 0 10^3/ul (0-0.2); ABS Eosinophils 0 10^3/ul (0-0.6); ABS Lymphocytes 1.9 10^3/ul (1.0-4.8); ABS Monocytes 1.1 10^3/ul (0-0.8); ABS Neutrophils 9.2 10^3/ul (1.5-7.7); ABS Nucleated RBC 0 10^3/ul; Eosinophil % 0.3 % (0-6); Hematocrit 32 % (35-47); Hemoglobin 10.3 g/dl (12.0-16.0); Lymphocyte % 15.6 % (25-47); Mean Corpuscular HGB Conc 32 g/dl (31-36); Mean Corpuscular Hemoglobin 26 pg (27-31); Mean Corpuscular Volume 79 fL (80-97); Mean Platelet Volume 10 um3 (7.4-10.4); Nucleated Red Blood Cells % 0; Platelet Count 185 10^3/ul (150-450); Red Blood Count 4.04 10^6/ul (4.0-5.4); Red Cell Distribution Width 14 % (10.5-15); White Blood Count 12.2 10^3/ul (3.5-10.8)
[2017-08-06] MEDS: Docusate CAP* 100 MG PO SCH ×2 (08:33→13:37)
[2017-08-06] MEDS ORDERED: Ferrous Gluconate TAB* 324 MG TAB PO SCH (09:00)
[2017-08-06] MEDS: Sertraline* 25 MG TAB PO SCH (13:37)
[2017-08-07] MEDS: Ibuprofen TAB* 600 MG PO PRN ×2 (00:10→08:10)
[2017-08-07] MEDS ORDERED: Sertraline* 25 MG TAB PO SCH (01:00)
[2017-08-07] MEDS: Docusate CAP* 100 MG PO SCH ×2 (06:45→08:10)
[2017-08-07 07:55] VITALS: BP 121/76
== END 2017-08-07 10:47 | disposition home or self-care (01) | DRG 560 ==
LOC: MCHOBOUT 15:00 → MCHOB 15:10
PROVIDERS: ADMIT Obstetrics & Gynecology; ATTEND Obstetrics & Gynecology
PROC: 10E0XZZ Delivery of Products of Conception, External Approach (ICD-10-PCS; principal; 2017-08-05)
PROC: 0HQ9XZZ Repair Perineum Skin, External Approach (ICD-10-PCS; 2017-08-05)
DX: O42.02 Full-term premature rupture of membranes, onset of labor within 24 hours of rupture (principal); O69.81X0 Labor and delivery complicated by cord around neck, without compression, not applicable or unspecified; O77.0 Labor and delivery complicated by meconium in amniotic fluid; O70.0 First degree perineal laceration during delivery; Z3A.37 37 weeks gestation of pregnancy; Z37.0 Single live birth
CPT/HCPCS: 36415; 85025; A9270-GY; J2590

== ENCOUNTER → 2018-10-06 16:23 | Emergency (ER) | payer OTHER ==
[~2018-10-06 16:23] MED LIST: Famotidine TAB* 20 MG PO ONE; Ibuprofen TAB* 600 MG PO ONE; diPHENhydraMINE PO* 25 MG PO ONE
--- NOTE | 2018-10-06 16:48 | ED ---
Skin Complaint - HPI Summary HPI Summary: Patient complains of possible bug bite to dorsal surface of left wrist and lateral upper left forearm with itching, redness and swelling starting yesterday. States history of localized reaction to bug bites which normally include redness and swelling. Has not taken any medications for same. Patient does not know when she was bit, or what kind of bug she was bitten by. Denies fever, cough, sore throat, CP, SOB, N/V/D, abdominal pain, change in urine, change in BM. Medical history is none. - History of Current Complaint Chief Complaint: EDGeneral Time Seen by Provider: 10/06/18 16:34 Stated Complaint: SWOLLEN LT WRIST PER PT Hx Obtained From: Patient Hx Last Menstrual Period: 08/14/16 Onset/Duration: Started Days Ago Skin Exposure Onset/Duration: Days Ago Timing: Constant Onset Severity: Mild Current Severity: None Pain Intensity: 0 Pain Scale Used: 0-10 Numeric Skin Location: Discrete Aggravating Symptom(s): Touch Alleviating Symptom(s): Nothing - Additional Pertinent History Primary Care Physician: [facility] - Allergy/Home Medications Allergies/Adverse Reactions: Allergies Allergy/AdvReac Type Severity Reaction Status Date / Time cashew nut Allergy Difficulty Verified 10/06/18 16:28 Breathing oral control Allergy See Comment Uncoded 10/06/18 16:28 Home Medications: Home Medications Cariprazine HCl [Vraylar] 3 mg PO BEDTIME 10/06/18 [History Confirmed 10/06/18] Mirena IUD 1 implant VAGINAL ONCE 10/06/18 [History Confirmed 10/06/18] PMH/Surg Hx/FS Hx/Imm Hx Endocrine/Hematology History: Denies: Hx Diabetes, Hx Thyroid Disease Cardiovascular History: Denies: Hx Hypertension Respiratory History: Denies: Hx Asthma History: Denies: Hx Kidney Infection, Other Problems/Disorders Musculoskeletal History: Denies: Hx Gout Sensory History: Denies: Hx Contacts or Glasses, Hx Hearing Aid Opthamlomology History: Denies: Hx Contacts or Glasses Neurological History: Denies: Hx Dementia Psychiatric History: Reports: Hx Anxiety, Hx Eating Disorder - ANOREXIA NERVOSA , BULEMIA, Hx Depression, Hx Post Traumatic Stress Disorder, Hx Inpatient Treatment - [facility] and [facility], Hx Community Mental Health Tx - [facility], Hx of Violent Episodes Against Others, Other Psychiatric Issues/Disorders - Immunization History Date of Tetanus Vaccine: utd Date of Influenza Vaccine: none Infectious Disease History: No Infectious Disease History: Denies: History Other Infectious Disease, Traveled Outside the [place] in Last 30 Days - Family History Known Family History: Positive: Hypertension, Diabetes, Other - osteopenia Negative: Blood Disorder Family History: Osteopenia - Social History Alcohol Use: None Hx Substance Use: No Substance Use Type: Reports: None Substance Use Comment - Amount & Last Used: spice, yesterday Hx Tobacco Use: Yes Smoking Status (MU): Former Smoker Review of Systems Constitutional: Negative Eyes: Negative ENT: Negative Cardiovascular: Negative Respiratory: Negative Gastrointestinal: Negative Genitourinary: Negative Musculoskeletal: Negative Skin: Other Neurological: Negative Psychological: Normal All Other Systems Reviewed And Are Negative: Yes Physical Exam - Summary Physical Exam Summary: Localized erythema and swelling around what looked to be insect bites on dorsal surface of distal left forearm, and lateral surface of proximal left forearm. Full range of motion of left wrist and left elbow without pain. [employer] strength normal in left hand. PMS intact distally. No apical abscess or purulent discharge noted. Triage Information Reviewed: Yes Vital Signs On Initial Exam: Initial Vitals Temp Pulse Resp BP Pulse Ox 98.3 F 65 16 120/62 98 10/06/18 16:24 10/06/18 16:24 10/06/18 16:24 10/06/18 16:24 10/06/18 16:24 Vital Signs Reviewed: Yes Appearance: Positive: Well-Appearing Skin: Positive: Warm Head/Face: Positive: Normal Head/Face Inspection Eyes: Positive: Normal Neck: Positive: Supple Respiratory/Lung Sounds: Positive: Clear to Auscultation Cardiovascular: Positive: Normal Abdomen Description: Positive: Nontender Musculoskeletal: Positive: Normal Neurological: Positive: Normal Psychiatric: Positive: Normal AVPU Assessment: Alert - [place] Coma Scale Best Eye Response: 4 - Spontaneous Best Motor Response: 6 - Obeys Commands Best Verbal Response: 5 - Oriented Coma Scale Total: 15 Diagnostics - Vital Signs Vital Signs Temp Pulse Resp BP Pulse Ox 10/06/18 16:24 98.3 F 65 16 120/62 98 - Laboratory Lab Statement: Any lab studies that have been ordered have been reviewed, and results considered in the medical decision making process. Course/Dx - Course Course Of Treatment: Patient complains of possible bug bite to dorsal surface of left wrist and lateral upper left forearm with itching, redness and swelling starting yesterday. States history of localized reaction to bug bites which normally include redness and swelling. Has not taken any medications for same. Patient does not know when she was bit, or what kind of bug she was bitten by. Denies fever, cough, sore throat, CP, SOB, N/V/D, abdominal pain, change in urine, change in BM. Medical history is none. Physical exam:Localized erythema and swelling around what looked to be insect bites on dorsal surface of distal left forearm, and lateral surface of proximal left forearm. Full range of motion of left wrist and left elbow without pain. [employer] strength normal in left hand. PMS intact distally. No apical abscess or purulent discharge noted. Vital signs within normal limits. - Diagnoses Provider Diagnoses: Insect bite, Allergic reaction Discharge - Sign-Out/Discharge Documenting (check all that apply): Patient Departure Patient Received Moderate/Deep Sedation with Procedure: No - Discharge Plan Condition: Stable Disposition: HOME Patient Education Materials: General Allergic Reaction (ED), Insect Bite or Sting (ED) Referrals: No Primary Care Phys,NOPCP [Primary Care Provider] - Additional Instructions: Ibuprofen 600 mg every 6 hours for pain. Benadryl 25 mg every 6 hours. You may ice the bites as well. Return to the ED for any new or worsening symptoms. - Billing Disposition and Condition Condition: STABLE Disposition: Home
[2018-10-06 17:52] VITALS: BP 0/0
== END | disposition home or self-care (01) ==
LOC: ED 16:23
DX: S60.862A Insect bite (nonvenomous) of left wrist, initial encounter (principal); W57.XXXA Bitten or stung by nonvenomous insect and other nonvenomous arthropods, initial encounter; Y92.9 Unspecified place or not applicable; F32.9 Major depressive disorder, single episode, unspecified; F50.00 Anorexia nervosa, unspecified; F43.10 Post-traumatic stress disorder, unspecified; Z87.891 Personal history of nicotine dependence
CPT/HCPCS: 99283; A9270-GY

== ENCOUNTER 2019-04-14 18:30 | Emergency (ER) | payer OTHER ==
--- NOTE | 2019-04-14 19:23 | ED ---
Palpitations / Dysrhythmia - HPI Summary HPI Summary: 24 year old female presenting with palpitations for the last 3 days. She states that she is having episodes where her heart "beating out of her chest," she becomes lightheaded, and is nauseous. She has never experienced anything like this in the past. Patient admits that she drinks two 16 ounce monsters per day and smokes 10-12 cigarettes per day. Smoking seems to make the symptoms worse. Patient admits that she has been only eating one meal per day. Denies chest pain , shortness of breath, vomiting. - History of Current Complaint Chief Complaint: EDDysrhythmPalp Time Seen by Provider: 04/14/19 19:04 - Allergy/Home Medications Allergies/Adverse Reactions: Allergies Allergy/AdvReac Type Severity Reaction Status Date / Time cashew nut Allergy Difficulty Verified 04/14/19 19:02 Breathing oral control Allergy See Comment Uncoded 04/14/19 19:02 PMH/Surg Hx/FS Hx/Imm Hx Endocrine/Hematology History: Denies: Hx Diabetes, Hx Thyroid Disease Cardiovascular History: Denies: Hx Hypertension Respiratory History: Denies: Hx Asthma History: Denies: Hx Kidney Infection, Other Problems/Disorders Musculoskeletal History: Denies: Hx Gout Sensory History: Denies: Hx Contacts or Glasses, Hx Hearing Aid Opthamlomology History: Denies: Hx Contacts or Glasses Neurological History: Denies: Hx Dementia Psychiatric History: Reports: Hx Anxiety, Hx Eating Disorder - ANOREXIA NERVOSA , BULEMIA, Hx Depression, Hx Post Traumatic Stress Disorder, Hx Inpatient Treatment - [facility] and [facility], Hx [facility] - [facility] and [facility], Hx of Violent Episodes Against Others, Other Psychiatric Issues/Disorders - Immunization History Date of Tetanus Vaccine: utd Date of Influenza Vaccine: none Immunizations Up to Date: Yes Infectious Disease History: No Infectious Disease History: Denies: History Other Infectious Disease, Traveled Outside the [place] in Last 30 Days - Family History Known Family History: Positive: Hypertension, Diabetes, Other - osteopenia Negative: Blood Disorder Family History: Osteopenia - Social History Alcohol Use: None Hx Substance Use: No Substance Use Type: Reports: None Substance Use Comment - Amount & Last Used: spice, yesterday Hx Tobacco Use: Yes Smoking Status (MU): Former Smoker Review of Systems Constitutional: Negative Eyes: Negative ENT: Negative Positive: Palpitations Respiratory: Negative Positive: Nausea Genitourinary: Negative Musculoskeletal: Negative Skin: Negative Neurological: Negative Psychological: Normal All Other Systems Reviewed And Are Negative: Yes Physical Exam Triage Information Reviewed: Yes Vital Signs On Initial Exam: Initial Vitals Temp Pulse Resp BP Pulse Ox 97.9 F 80 18 115/68 97 04/14/19 18:33 04/14/19 18:33 04/14/19 18:33 04/14/19 18:33 04/14/19 18:33 Vital Signs Reviewed: Yes Appearance: Positive: Well-Appearing, No Pain Distress, Well-Nourished Skin: Positive: Warm, Skin Color Reflects Adequate Perfusion, Dry Head/Face: Positive: Normal Head/Face Inspection Eyes: Positive: Normal, EOMI ENT: Positive: Normal ENT inspection Neck: Positive: Supple Respiratory/Lung Sounds: Positive: Clear to Auscultation, Breath Sounds Present Cardiovascular: Positive: Normal, RRR, S1, S2 Abdomen Description: Positive: Nontender, Soft Bowel Sounds: Positive: Present Musculoskeletal: Positive: Normal Neurological: Positive: Normal Psychiatric: Positive: Normal, Affect/Mood Appropriate Procedures - Sedation Patient Received Moderate/Deep Sedation with Procedure: No Diagnostics - Vital Signs Vital Signs Temp Pulse Resp BP Pulse Ox 04/14/19 18:33 97.9 F 80 18 115/68 97 - Laboratory Lab Statement: Any lab studies that have been ordered have been reviewed, and results considered in the medical decision making process. - EKG No standard instances Cardiac Rate: NL EKG Rhythm: Sinus Bradycardia Summary of EKG Findings: sinus bradycardia Course/Dx - Course Course Of Treatment: 24 year old female presenting with palpitations, nausea, and light headedness x 3 days. She states that she drinks two 16 ounce monsters per day and smokes 10-12 cigarettes per day. currently asx. Lungs CTA bilaterally. RRR normal S1 and S2. Patient encouraged to slowly cut back on caffeine usage, call smokers quitline, and increase fluid intake. she declined any lab work here. Patient agrees with this plan. - Diagnoses Differential Diagnosis/HQI/PQRI: Positive: Medication Induced, Panic Disorder, Other - substance abuse Provider Diagnoses: Palpitations, Caffeine abuse, Smoker Discharge ED - Sign-Out/Discharge Documenting (check all that apply): Patient Departure - Discharge Plan Condition: Good Disposition: HOME Patient Education Materials: Caffeine Use (ED) Referrals: [facility] [facility] [Outside] Additional Instructions: cut back slow on energy drinks increase water consumption call mi quit for smoking resources establish care with primary Return to ED if develop any new or worsening symptoms - Billing Disposition and Condition Condition: GOOD Disposition: Home
[2019-04-14 19:57] VITALS: BP 132/73
== END 2019-04-14 19:52 | disposition home or self-care (01) ==
LOC: ED 18:30
DX: R00.2 Palpitations (principal); F15.10 Other stimulant abuse, uncomplicated; F17.210 Nicotine dependence, cigarettes, uncomplicated; F41.9 Anxiety disorder, unspecified; Z88.8 Allergy status to other drugs, medicaments and biological substances
CPT/HCPCS: 93005; 99282

== ENCOUNTER 2022-03-02 10:23 | Inpatient (IN) ==
[~2022-03-02 10:23] MED LIST changes: +Buffered Lidocaine 1% SYRIN 1 ml INTRADERM ONE; -Famotidine TAB* 20 MG PO ONE; -Ibuprofen TAB* 600 MG PO ONE; +Lactated Ringers 1000 ml BAG 1,000 ML IV ONE; +Nalbuphine 10 MG/ML 1 ML VIAL IV PRN; +Promethazine INJ(RESTRICTED) 25 MG/ML 1 ml VIAL IV PRN; -diPHENhydraMINE PO* 25 MG PO ONE
[2022-03-02] MEDS ORDERED: Lactated Ringers 1000 ml BAG 1,000 ML IV SCH ×2 (11:00→15:00)
[2022-03-02 11:34] LABS: Urine Benzodiazepine Screen None Detected (None Detect); Urine Cannabinoids Screen None Detected (None Detect); Urine Opiates Screen None Detected (None Detect)
[2022-03-02] MEDS ORDERED: Oxytocin 10 UNITS/ML 1 ML VIAL IM ONE (14:51)
[2022-03-02] MEDS ORDERED: Varicella Virus Vaccine Live 0.5 ML VIAL SUBCUT ONE (14:51)
[2022-03-02] MEDS ORDERED: Dibucaine 1% OINT 28.35 GM TUBE PR PRN (14:51)
[2022-03-02] MEDS ORDERED: Witch Hazel PAD JAR TOPICAL PRN (14:51)
[2022-03-02] MEDS ORDERED: Oxytocin 10 UNITS/ML 1 ML VIAL ONE (17:02)
[2022-03-03 09:11] LABS: ABS Eosinophils 0.1 10^3/ul (0-0.6); ABS Lymphocytes 2.1 10^3/ul (1.0-4.8); ABS Monocytes 0.9 10^3/ul (0-0.8); ABS Neutrophils 11.6 10^3/ul (1.5-7.7); Eosinophil % 0.5 %; Hematocrit 32 % (35-47); Hemoglobin 10.4 g/dL (12.0-16.0); Lymphocyte % 14.2 %; Mean Corpuscular HGB Conc 33 g/dL (31-36); Mean Corpuscular Hemoglobin 29 pg (27-31); Mean Corpuscular Volume 89 fL (80-97); Mean Platelet Volume 9.2 fL (7.4-10.4); Platelet Count 261 10^3/uL (150-450); Red Blood Count 3.56 10^6 /uL (3.70-4.87); Red Cell Distribution Width 14 % (10-15); White Blood Count 14.7 10^3/uL (3.5-10.8)
[2022-03-03 15:24] VITALS: BP 109/62
== END 2022-03-03 16:01 | disposition home or self-care (01) | DRG 560 ==
LOC: MCHOBOUT 10:23 → MCHOB 10:24
PROVIDERS: ADMIT Midwife; ATTEND Midwife